=== PATIENT | male | born 1990 | race Asian ===

== ENCOUNTER 2022-04-02 22:54 | Emergency (ER) | payer MEDICAID, OTHER ==
[~2022-04-02] VITALS: Ht 180.3 cm; Wt 81.6 kg
--- NOTE | 2022-04-02 23:38 | NUR ---
Pt states he wants to go voluntarily to a psych facility. Pt provided urine, sent to lab.
[2022-04-02 23:53] LABS: HEMATOCRIT 36.6 % (36.7-47.1); PLATELET COUNT (AUTO) 320 K/uL (152-348)
[2022-04-02 23:58] LABS: *AMPHETAMINE, URINE POSITIVE (NEGATIVE); *CANNABINOID, URINE POSITIVE (NEGATIVE); *COCCAINE, URINE NEGATIVE (NEGATIVE); *PHENCYCLIDINE SCREEN,URINE NEGATIVE (NEGATIVE)
[2022-04-03 00:08] LABS: ACETAMINOPHEN 2.7 ug/mL (10-30); ALANINE AMINOTRANSFERASE 18 U/L (16-63); ALKALINE PHOSPHATASE 53 U/L (50-136); ASPARTATE AMINOTRANSFERASE 17 U/L (15-37); BILIRUBIN,DIRECT 0.1 mg/dL (0.0-0.2); BILIRUBIN,TOTAL 0.5 mg/dL (0.2-1.0); CARBON DIOXIDE 30 mmol/L (21-32); CHLORIDE 103 mmol/L (98-107); CREATINE KINASE, TOTAL 372 U/L (39-308); GLUCOSE 70 mg/dL (74-106); POTASSIUM 3.6 mmol/L (3.5-5.1); TOTAL PROTEIN, SERUM 7.3 g/dL (6.4-8.2); UREA NITROGEN, BLOOD 19 mg/dL (7-18)
[2022-04-03 00:29] LABS: ETHANOL < 3 MG/DL (0-0)
--- NOTE | 2022-04-03 01:25 | NUR ---
Pt medically cleared by Dr. Brunner
--- NOTE | 2022-04-03 01:34 | NUR ---
Called [facility] for psych evaluation, instructed to fax patient information to [facility].
--- NOTE | 2022-04-03 01:38 | NUR ---
Called [facility] for pt placement . Spoke to Greg and he stated that there are no beds available.
[2022-04-03] MEDS ORDERED: IV NS 1000 ML 1,000 ML IV ONE (04:45)
--- NOTE | 2022-04-03 07:10 | NUR ---
Recieved pt in bed resting w/ both eyes closed, NAD noted.
--- NOTE | 2022-04-03 07:30 | NUR ---
Pt is awake A/O x4 and states he is still suicidal w/ intent of running in the front of a car. Suicide implantation re enforced.
--- NOTE | 2022-04-03 08:00 | NUR ---
GABI Roque faxed info for possible pt's placement to Psych facility.
--- NOTE | 2022-04-03 08:15 | NUR ---
Breakfast tray provided, ate w/ moderate appettite.
--- NOTE | 2022-04-03 08:44 | NUR ---
GABI consult for a patient in the ER for suicidal ideation. Patient is a 31 year old male patient. Patient is positive for amphetamines, benzodiazepines, and cannabinoids and he was just discharged from [facility] yesterday and wants to go back for voluntary hospitalization. GABI faxed his clinical information to Greg at [facility] and Derik at [facility] as well. GABI will continue to follow up.
[2022-04-03] MEDS ORDERED: OLANZAPINE 5 MG TABLET PO ONE (08:45)
[2022-04-03] MEDS ORDERED: OLANZAPINE 5 MG TABLET ONE (08:49)
--- NOTE | 2022-04-03 08:55 | NUR ---
Pt refused to take Zyprexa, and stated he will take his own medications for morning which consist of wellbuterin, Zoloft and aderral. Dr Anguiano notified and spoke to pt.
--- NOTE | 2022-04-03 09:10 | NUR ---
Bree Jansen at the bedside speaking to pt.
[2022-04-03 09:35] LABS: *BILIRUBIN,URIN NEGATIVE (NEGATIVE); *BLOOD, URINE NEGATIVE (NEGATIVE); *CLARITY,URINE CLEAR (CLEAR); *COLOR,URINE YELLOW (YELLOW); *KETONES,URINE NEGATIVE (NEGATIVE); LEUKOCYTE ESTERASE ,URINE NEGATIVE (NEGATIVE); NITRITE, URINE NEGATIVE (NEGATIVE); UGLUCOSE NEGATIVE (NEGATIVE)
[2022-04-03 10:14] LABS: BACTERIA,URINE NONE SEEN /HPF (NONE SEEN); RBC,URINE NONE SEEN /HPF (0-3); SQUAMOUS EPITHELIAL CELL,UR FEW /HPF (NONE SEEN); WBC,URINE 0-3 /HPF (0-3)
--- NOTE | 2022-04-03 10:36 | NUR ---
Social Work consult was requested for a patient in the emergency room for mental health and substance abuse resources. Patient is a 31-year-old male. Patient is alert and oriented X4. Patient presents with anxious mood and congruent affect. Patient states she does not have a primary contact. Patient states he currently lives with friends at [address] [place] [address]. 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 Patient denies a history of substance abuse and the toxicology report is positive for cannabinoids, amphetamines and benzodiazepines. GABI provided the patient resources for [facility] [id number] [place] [id number] ([phone]), [facility] [address] [facility] [address] ([phone]), and [address] [address] ([phone]). Patient states he has a history of depression, anxiety and ADHD and is taking Wellbutrin and Zoloft. Patient states he is seeing a therapist, Nadir, monthly. Patient states he is having suicidal ideation because he just broke up with his girlfriend last night. Patient denies auditory or visual hallucinations. GABI provided the patient with mental health resources for [facility] ([phone]) [address] [facility] [address]. Patient states he is open to going voluntarily to a psychiatric hospital and GABI faxed his clinical information to Greg at [facility] and Derik at [facility] as well. GABI will continue to follow up.
--- NOTE | 2022-04-03 11:51 | NUR ---
IV removed. Catheter intact and site benign. Pressure and 4x4 gauze applied to site. No bleeding noted.
--- NOTE | 2022-04-03 12:28 | NUR ---
Pt got acceptance to [facility], per SW. Pt made aware of volunteer transfer and signed consent for transfer. [facility] called ETA [id number].
--- NOTE | 2022-04-03 13:40 | NUR ---
attempted to give report to accepting facility, unable to, left message w/ gene to call back for report.
--- NOTE | 2022-04-03 14:10 | NUR ---
Attempted to give nurse to nurse report, unable to, charge entry specialist was not available.
--- NOTE | 2022-04-03 14:15 | NUR ---
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 Pt left ER via gurney in stable condition, all belongings sent w/ pt.
--- NOTE | 2022-04-03 14:50 | NUR ---
Recieved a call from [employer] [facility] and gave report to Holly MENDOZA.
== END 2022-04-03 15:00 ==
LOC: ER 23:14
DX: R45.851 Suicidal ideations (principal); N28.9 Disorder of kidney and ureter, unspecified; E05.00 Thyrotoxicosis with diffuse goiter without thyrotoxic crisis or storm; Z87.891 Personal history of nicotine dependence; F90.9 Attention-deficit hyperactivity disorder, unspecified type; F41.9 Anxiety disorder, unspecified; Z79.899 Other long term (current) drug therapy; Z20.822 Contact with and (suspected) exposure to COVID-19; R82.5 Elevated urine levels of drugs, medicaments and biological substances
CPT/HCPCS: 80076; 80048; 82550; 84443; 85025; 87426; 36415; 80299; 80320; 80307; 81001; 99285; 96360; 96361; J7040; A4663; G0480